=== PATIENT | male | born 1955 | race Caucasian/White ===

== ENCOUNTER 2017-04-19 09:18 | Day surgery (SDC) | payer BC ==
[~2017-04-19 09:18] MED LIST: Cefuroxime 10 MG/ML SYRINGE EYELF SCH; Lidocaine 1% PF 2 ML SDV INJECT SCH; Pilocarpine 4% Ophth Soln 15 ML Bot EYELF SCH
[2017-04-19] MEDS: Polymyxin B/Trimethoprim 10 ML Bottle EYELF SCH ×3 (10:09→12:18)
[2017-04-19] MEDS: Brimonidine 0.2% Ophth Soln 5 ML Bottle EYELF SCH ×3 (10:14→12:18)
[2017-04-19] MEDS: Phenylephrine 2.5% Ophth Soln 2 ML Bot EYELF SCH ×5 (10:19→11:36)
--- NOTE | 2017-04-19 10:22 | PCM.PREANE ---
Preanesthetic Assessment - Anesthesia/Transfusion/Family Hx Anesthesia History: Prior Anesthesia Without Reaction Family History of Anesthesia Reaction: No - Review of Systems General: No Symptoms Pulmonary: Shortness of Breath, Other (smoker, pipe) Cardiovascular: No Symptoms Gastrointestinal: No symptoms Neurological: No Symptoms Other: Reports: None - Physical Assessment NPO Status Date: 04/18/17 NPO Status Time: 21:00 O2 Sat by Pulse Oximetry: 100 Respiratory Rate: 16 Vital Signs: Last Vital Signs Temp 37.1 C 04/19/17 10:00 Pulse 60 04/19/17 10:00 Resp 16 04/19/17 10:00 BP 153/77 H 04/19/17 10:00 Pulse Ox 100 04/19/17 10:00 Height: 1.73 m Weight: 81.647 kg ASA Class: 2 Mental Status: Alert & Oriented x3 Airway Class: Mallampati = 2 Dentition: Reports: Normal Dentition Thyro-Mental Finger Breadths: 3 Mouth Opening Finger Breadths: 3 ROM/Head Extension: Full Lungs: Clear to auscultation, Normal respiratory effort, Decreased breath sounds Cardiovascular: Regular Rate, Regular Rhythm - Allergies Allergies/Adverse Reactions: Allergies Allergy/AdvReac Type Severity Reaction Status Date / Time No Known Allergies Allergy Verified 04/18/17 16:09 - Blood Blood Available: No Product(s) Available: None - Anesthesia Plan Pre-Op Medication Ordered: None - Acknowledgements Anesthesia Type Planned: MAC Pt an Appropriate Candidate for the Planned Anesthesia: Yes Alternatives and Risks of Anesthesia Discussed w Pt/Guardian: Yes Pt/Guardian Understands and Agrees with Anesthesia Plan: Yes PreAnesthesia Questionnaire Cardiovascular History: Reports: Hypertension - Past Surgical History HEENT Surgical History: Reports: Detached Retina, Retinal - SUBSTANCE USE Smoking Status *Q: Current Every Day Smoker Tobacco Use Within Last Twelve Months: Pipe Recreational Drug Use History: No - HOME MEDS Home Medications: Home Meds . [No Known Home Meds] 11/02/15 [History] - CURRENT (IN HOUSE) MEDS Current Meds: Current Medications Brimonidine Tartrate (Alphagan 0.2% Ophth Soln) 0 ml EYELF ASDIRECTED HENRIETTA Stop: 04/19/17 18:00 Last Admin: 04/19/17 10:14 Dose: 1 drop Cefuroxime Sodium (Zinacef) 0 mg EYELF ASDIRECTED HENRIETTA Stop: 04/19/17 18:00 Lidocaine HCl (Xylocaine-Mpf 1%) 10 ml INJECT ASDIRECTED HENRIETTA Stop: 04/19/17 18:00 Phenylephrine HCl (Matty-Synephrine 2.5% Ophth Soln) 0 ml EYELF ASDIRECTED HENRIETTA Stop: 04/19/17 18:00 Pilocarpine HCl (Pilocar 4% Ophth Soln) 0 ml EYELF ASDIRECTED HENRIETTA Stop: 04/19/17 18:00 Polymyxin/Trimethoprim Sulfate (Polytrim Ophth Soln) 0 ml EYELF ASDIRECTED HENRIETTA Stop: 04/19/17 18:00 Last Admin: 04/19/17 10:09 Dose: 1 drop Tetracaine HCl (Tetracaine 0.5% Steri-Unit Nani) 1 ml EYELF ASDIRECTED HENRIETTA Stop: 04/19/17 18:00 Tropicamide (Mydriacyl 1% Ophth Soln) 0 ml EYELF ASDIRECTED HENRIETTA Stop: 04/19/17 18:00
[2017-04-19] MEDS ORDERED: Lidocaine 1% with EPINEPHrine 1:100,000 20 ML MDV ONE (11:28)
[2017-04-19] MEDS: Tetracaine HCl/PF 0.5% 4 ML Bottle EYELF SCH ×2 (11:33→11:45)
[2017-04-19] MEDS ORDERED: Mupirocin Oint 22 GM Tube ONE (11:52)
--- NOTE | 2017-04-19 12:27 | PCM48HPAN ---
Post Anesthesia Note - EVALUATION WITHIN 48HRS OF ANESTHETIC Vital Signs in Normal Range: Yes Patient Participated in Evaluation: Yes Respiratory Function Stable: Yes Airway Patent: Yes Cardiovascular Function Stable: Yes Hydration Status Stable: Yes Pain Control Satisfactory: Yes Nausea and Vomiting Control Satisfactory: Yes Mental Status Recovered: Yes
[2017-04-19 12:34] VITALS: BP 138/92
== END 2017-04-19 12:29 | disposition home or self-care (01) ==
LOC: JD.SDS 09:18
PROVIDERS: ATTEND Ophthalmology
DX: H26.9 Unspecified cataract (principal); Z98.890 Other specified postprocedural states; F17.210 Nicotine dependence, cigarettes, uncomplicated
CPT/HCPCS: 66984; A9270; J0697; C1780

== ENCOUNTER 2017-12-23 21:13 | Emergency (ER) | payer BC ==
[2017-12-23 21:44] VITALS: BP 178/106
--- NOTE | 2017-12-23 21:48 | EDM.PDOC ---
ED HPI GENERAL MEDICAL PROBLEM - General Chief Complaint: Abdominal Pain Stated Complaint: STOMACH PAIN Time Seen by Provider: 12/23/17 21:48 Source of Information: Reports: Patient, Family (spouse) History Limitations: Reports: No Limitations - History of Present Illness INITIAL COMMENTS - FREE TEXT/NARRATIVE: 62-year-old male presents to the ED with epigastric right upper quadrant and left upper quadrant abdominal pain since yesterday. Patient states that he started developing abdominal pain primarily epigastric on intermittent basis about 6 weeks ago. Over that timeframe pain is become more intense and more constant and more frequent. He did state he did see Dr. Mccarthy in clinic last week and was prescribed a Z-Norbert he states he felt somewhat better after the first 2 tablets but after that it didn't seem to make much difference. He does not recognize any will reflux symptoms. He has tried Tums and Rolaids tonight without any effect. He feels associated nausea but he can't vomit. Burping and belching does not seem to relieve the discomfort. He hasn't had a beer for about 6 weeks. He still smokes a pack of cigarettes daily. States he is losing a little bit of weight. He states that even certain foods that his is cooking makes him ill. States normal bowel movement today, normal color without blood. He is aware that his stomach is churning actively all the time or gurgling. Previous abdominal surgery is that of an appendectomy as a teenager. Eyes any genitourinary complaints. Pain does radiate through to his mid back into scapular. He is to the point now that he is afraid to eat as it seems to make the pain worse. He did have some toast at dinnertime today only. He has had a 7-Up also. Only medication he is taking at present as Prilosec 20 mg daily Onset: Gradual (Over the last 6 weeks.) Onset Date: 11/04/17 Duration: Week(s):, Constant (Initially pain was waxing and waning with days free of pain but now it's been more constant. He's been in constant discomfort since yesterday.), Getting Worse, Waxing/Waning Location: Reports: Abdomen (Primarily epigastrium and along the right upper quadrant of the costal margin.), Radiates to (2A through to his mid back intrascapular.) Quality: Reports: Ache, Pressure, Other Severity: Severe (Her pain as 9 out of 10.) Improves with: Reports: None (Tums Rolaids and 7-Up did not help the pain.) Worsens with: Reports: Eating (Eating makes the pain much worse) Context: Denies: Activity, Exercise, Lifting, Sick Contact, Trauma, Other Associated Symptoms: Reports: Cough (Smoker's cough.), Loss of Appetite, Malaise , Nausea/Vomiting, Weakness (Nausea with no vomiting). Denies: No Other Symptoms, Confusion, Chest Pain ( Amoxicillin), cough w sputum, Diaphoresis, Fever/Chills, Headaches, Rash, Seizure, Shortness of Breath, Syncope Treatments STRUCTURAL FITTER: Reports: Other (see below) (None.) Upper Abdomen Pain Score (Numeric/FACES): 8 - Related Data Allergies Allergy/AdvReac Type Severity Reaction Status Date / Time No Known Allergies Allergy Verified 04/18/17 16:09 Home Meds: Home Meds Omeprazole Magnesium [Prilosec Otc] 40 mg PO DAILY 12/23/17 [History] Dicyclomine [Bentyl] 20 mg PO Q6H PRN #10 tablet 12/24/17 [Rx] Hyoscyamine Sulfate [Levsin-Sl] 0.125 mg SL ASDIRECTED #8 tab.subl 12/24/17 [Rx] Past Medical History Cardiovascular History: Reports: Hypertension - Past Surgical History HEENT Surgical History: Reports: Detached Retina, Retinal GI Surgical History: Reports: Appendectomy Social & Family History - Family History Family Medical History: Noncontributory - Tobacco Use Smoking Status *Q: Current Every Day Smoker Tobacco Use Within Last Twelve Months: Cigarettes Years of Tobacco use: 45 Packs/Tins Daily: 1 - Caffeine Use Caffeine Use: Reports: Coffee, Soda - Alcohol Use Alcohol Use History: Yes Alcohol Use in Last Twelve Months: Yes - Recreational Drug Use Recreational Drug Use: No ED ROS GENERAL - Review of Systems Review Of Systems: See Below Constitutional: Reports: Malaise, Weakness, Fatigue, Decreased Appetite, Weight Loss (Not sure how much.). Denies: Fever, Chills HEENT: Reports: No Symptoms Respiratory: Reports: Cough. Denies: Sputum, Hemoptysis (Smoker's cough.) Cardiovascular: Denies: Chest Pain, Blood Pressure Problem, Claudication, Lightheadedness, Orthopnea, Palpitations Endocrine: Reports: Fatigue. Denies: No Symptoms GI/Abdominal: Reports: Abdominal Pain, Decreased Appetite, Distension, Nausea ( Nausea without vomiting). Denies: Constipation, Diarrhea, Difficulty Swallowing , Flatus (Feels bloated.), Hematemesis, Hematochezia, Melena, Stool Incontinence , Vomiting, Other : Reports: No Symptoms Musculoskeletal: Reports: No Symptoms Skin: Reports: No Symptoms Neurological: Reports: No Symptoms Psychiatric: Reports: Anxiety Hematologic/Lymphatic: Reports: No Symptoms Immunologic: Reports: No Symptoms ED EXAM, GI/ABD - Physical Exam Exam: See Below Exam Limited By: No Limitations General Appearance: Alert, Anxious, Moderate Distress (Appears to be in discomfort. Answers all questions quite appropriately makes good eye contact.) Eyes: Bilateral: Normal Appearance (No jaundice.) Throat/Mouth: Other (Tongue is mildly dry. Oropharynx is mildly erythematous from cigarette smoking.) Head: Atraumatic, Normocephalic Neck: Normal Inspection, Supple, Non-Tender, Full Range of Motion. No: Lymphadenopathy (L), Lymphadenopathy (R), Thyromegaly Respiratory/Chest: No Accessory Muscle Use, Respiratory Distress, Wheezing ( Mild tachypnea which a quite to anxiety diffuse wheezing on expiration throughout all lung jones.). No: Lungs Clear, Crackles, Rales, Rhonchi Cardiovascular: Normal Peripheral Pulses, Regular Rate, Rhythm, No Edema, No Gallop GI/Abdominal Exam: No Mass, Pelvis Stable, Tender (Zachary in the epigastrium and along the right costal margin with a positive Soto sign. However appears that his entire liver edge is very tender to touch.), Abnormal Bowel Sounds ( Hyperactive bowel sounds in all 4 quadrants.) Back Exam: Normal Inspection, Full Range of Motion. No: CVA Tenderness (L), CVA Tenderness (R) Extremities: Normal Inspection, Normal Range of Motion, Non-Tender, No Pedal Edema Neurological: Alert, Oriented, CN II-XII Intact, Normal Cognition, Normal Gait Psychiatric: Normal Mood, Anxious (Admits to being mildly anxious.) Skin Exam: Warm, Dry, Intact, Normal Color, No Rash EKG INTERPRETATION EKG Date: 12/23/17 Time: 22:05 Rhythm: NSR Rate (Beats/Min): 62 [place]: Normal P-Wave: Present QRS: Other (Near Q-wave in aVL. Nonspecific) ST-T: Normal QT: Normal EKG Interpretation Comments: Essentially normal ECG Course - Vital Signs Last Recorded V/S: Last Vital Signs Temp 36.5 C 12/23/17 21:42 Pulse 69 12/23/17 21:42 Resp 20 12/23/17 21:42 BP 178/106 H 12/23/17 21:42 Pulse Ox 100 12/23/17 21:42 - Orders/Labs/Meds Orders: Active Orders 24 hr Category Date Time Status EKG Documentation Completion [RC] STAT Care 12/23/17 21:57 Active Abdomen 1V Flat [CR] Stat Exams 12/23/17 21:57 Taken Abdomen Pelvis w Cont [CT] Stat Exams 12/23/17 22:42 Taken Chest 1V Frontal [CR] Stat Exams 12/23/17 21:59 Taken Labs: Laboratory Tests 12/23/17 12/23/17 12/23/17 Range/Units 22:06 22:06 22:06 WBC 11.29 H (4.23-9.07) K/mm3 RBC 4.74 (4.63-6.08) M/mm3 Hgb 14.8 (13.7-17.5) gm/L Hct 42.4 (40.1-51.0) % MCV 89.5 (79.0-92.2) fl MCH 31.2 (25.7-32.2) pg MCHC 34.9 (32.2-35.5) g/dl RDW Std Deviation 42.8 (35.1-43.9) fL Plt Count 141 L (163-337) K/mm3 MPV 10.2 (9.4-12.3) fl Neutrophils % (Manual) 76 H (40-60) % Band Neutrophils % 0 (0-10) % Lymphocytes % (Manual) 21 (20-40) % Atypical Lymphs % 0 % Monocytes % (Manual) 2 (2-10) % Eosinophils % (Manual) 1 (0.8-7.0) % Basophils % (Manual) 0 L (0.2-1.2) Platelet Estimate Adequate Plt Morphology Comment Normal RBC Morph Comment Normal ESR 6 (0-15) mm/hr Sodium 143 (136-145) mEq/L Potassium 3.8 (3.5-5.1) mEq/L Chloride 107 (98-107) mEq/L Carbon Dioxide 22 (21-32) mEq/L Anion Gap 17.8 H (5-15) BUN 16 (7-18) mg/dL Creatinine 1.2 (0.7-1.3) mg/dL Est Cr Clr Drug Dosing 56.12 mL/min Estimated GFR (MDRD) > 60 (>60) mL/min BUN/Creatinine Ratio 13.3 L (14-18) Glucose 101 (80-115) mg/dL Calcium 8.9 (8.5-10.1) mg/dL Total Bilirubin 0.8 (0.2-1.0) mg/dL AST 18 (15-37) U/L ALT 23 (16-63) U/L Alkaline Phosphatase 73 (46-116) U/L Troponin I < 0.017 (0.00-0.056) ng/mL C-Reactive Protein < 0.2 (<1.0) mg/dL Total Protein 6.7 (6.4-8.2) g/dl Albumin 3.9 (3.4-5.0) g/dl Globulin 2.8 gm/dL Albumin/Globulin Ratio 1.4 (1-2) Lipase 120 (73-393) U/L H. pylori IgG Antibody (NEGATIVE) 12/23/17 Range/Units 22:06 WBC (4.23-9.07) K/mm3 RBC (4.63-6.08) M/mm3 Hgb (13.7-17.5) gm/L Hct (40.1-51.0) % MCV (79.0-92.2) fl MCH (25.7-32.2) pg MCHC (32.2-35.5) g/dl RDW Std Deviation (35.1-43.9) fL Plt Count (163-337) K/mm3 MPV (9.4-12.3) fl Neutrophils % (Manual) (40-60) % Band Neutrophils % (0-10) % Lymphocytes % (Manual) (20-40) % Atypical Lymphs % % Monocytes % (Manual) (2-10) % Eosinophils % (Manual) (0.8-7.0) % Basophils % (Manual) (0.2-1.2) Platelet Estimate Plt Morphology Comment RBC Morph Comment ESR (0-15) mm/hr Sodium (136-145) mEq/L Potassium (3.5-5.1) mEq/L Chloride (98-107) mEq/L Carbon Dioxide (21-32) mEq/L Anion Gap (5-15) BUN (7-18) mg/dL Creatinine (0.7-1.3) mg/dL Est Cr Clr Drug Dosing mL/min Estimated GFR (MDRD) (>60) mL/min BUN/Creatinine Ratio (14-18) Glucose (80-115) mg/dL Calcium (8.5-10.1) mg/dL Total Bilirubin (0.2-1.0) mg/dL AST (15-37) U/L ALT (16-63) U/L Alkaline Phosphatase (46-116) U/L Troponin I (0.00-0.056) ng/mL C-Reactive Protein (<1.0) mg/dL Total Protein (6.4-8.2) g/dl Albumin (3.4-5.0) g/dl Globulin gm/dL Albumin/Globulin Ratio (1-2) Lipase (73-393) U/L H. pylori IgG Antibody Negative (NEGATIVE) Meds: Medications Discontinued Medications Generic Name Dose Route Start Last Admin Trade Name Freq PRN Reason Stop Dose Admin Diatrizoate Meglum/Diatrizoate Sod 90 ml 12/23/17 23:04 12/23/17 23:48 Gastrografin 37% PO 12/23/17 23:05 90 ml ONETIME ONE Administration Hydromorphone HCl 1 mg 12/23/17 21:56 12/23/17 22:22 Dilaudid IVPUSH 12/23/17 21:57 Not Given ONETIME ONE Hydromorphone HCl 1 mg 12/23/17 22:09 12/23/17 22:19 Dilaudid IVPUSH 12/23/17 22:10 1 mg ONETIME ONE Administration Hyoscyamine 0.125 mg 12/23/17 21:57 12/23/17 22:20 Hyomax-Sl SL 12/23/17 21:58 0.125 mg ONETIME ONE Administration Dextrose/Sodium Chloride 1,000 mls @ 500 mls/hr 12/23/17 22:00 12/23/17 22:25 Dextrose 5%-Normal Saline IV 500 mls/hr ASDIRECTED HENRIETTA Administration Iopamidol 125 ml 12/23/17 23:04 12/23/17 23:48 Isovue-300 (61%) IVPUSH 12/23/17 23:05 125 ml ONETIME ONE Administration Metoclopramide HCl 7.5 mg 12/23/17 21:56 12/23/17 22:17 Reglan IVPUSH 12/23/17 21:57 7.5 mg ONETIME ONE Administration Sodium Chloride 10 ml 12/23/17 23:05 12/23/17 23:48 Saline Flush FLUSH 10 ml ONETIME PRN Administration Keep Vein Open - Radiology Interpretation Free Text/Narrative:: 62-year-old male presents the ED with diffuse epigastric right upper quadrant and left upper quadrant abdominal pain that radiates through to his mid back. Patient states she's been plagued with this type of pain off and on for the last 6 weeks but it's becoming more severe more intense and lasting longer. Is now afraid to eat. He has associated nausea due to the severity of the pain but he has not vomited. He has been having normal bowel movements. He believes he is losing some weight but is not sure as he doesn't step on a scale. Previous abdominal surgeries that of an appendectomy. He was seen by Dr. [facility]il[facility] last week and identified to have a suspect gastritis. He was placed on a Z-Norbert and is on Prilosec 20 mg a day. He states he is no better over the last week. He has had constant epigastric right upper quadrant abdominal pain for the last 24-30 hours. He has taken Rolaids Tums and 7-Up with no relief. Examination reveals very active bowel sounds in all 4 quadrants. Marked tenderness in the epigastrium and along the right costal margin along the distribution of his liver. He does have a positive Soto sign. Plan IV D5 normal saline at 500 mils per hour. Given Dilaudid 1 mg IV after Levsin 0.125 mg sublingually. Reglan 7.5 mg IV. One view of the chest and one view of the abdomen to be done. Is a [id number] history of cigarette smoking. Routine labs including serum lipase will be ordered. If nothing is found then he will be subjected to CT of the abdomen and pelvis with oral and IV contrast. - Re-Assessments/Exams Free Text/Narrative Re-Assessment/Exam: 12/23/17 22:24 chest x-ray shows mildly hyperinflated lung jones which are clear with no sign of tumor or mass. Cardiac silhouette is normal. KUB reveals no signs of bowel obstruction. There is a bolus of stool in the rectal vault. Air is seen throughout the colon. There are no air-fluid levels. 12/23/17 22:43 pain is still present in the epigastrium nausea improved. I'm going to start him on oral contrast in preparation for CT of the abdomen and pelvis with oral and IV contrast. 12/23/17 23:37 Labs are back. White count is 11.29 with 76% neutrophils and no bands reported. Hemoglobin is 14.8 with hematocrit of 42.4. Sedimentation rate is 6. Sodium 143 with a potassium of 3.8. Chloride 107 with a bicarbonate of 22. Anion gap is elevated at 17.8. BUN is 16. Creatinine is 1.2. GFR is greater than 60. Glucose is 101 calcium 8.9 total bilirubin 0.8. AST is 18 ALT is 23. Alk phosphatase is 73. Troponin I is less then 0.017. C-reactive protein is less than 0.2. Lipase is 120. H. pylori antibody is negative. 12/23/17 23:40 patient is due for CT the abdomen and pelvis with oral and IV contrast in about 10 minutes. He reports he has a sense of fullness from the contrast but his pain overall is markedly improved rates it as a 1 out of 10. 12/24/17 01:08 CT of the abdomen and pelvis has been completed. Visualized portions of the lungs appear normal as does the cardiac silhouette. There is a small hiatal hernia evident. Abdomen shows solid abdominal organs to be unremarkable gallbladder is fluid-filled with no stones evident. There is no biliary ductal dilatation. Multiple sigmoid predominate clonic diverticula are appreciated with no evidence of active diverticulitis. There is a moderate amount of stool throughout the right hemicolon left hemicolon and rectal vault. Oral contrast reaches the mid to distal small bowel the appendix is not identified and no periappendiceal inflammatory changes are evident. No abdominal aortic aneurysm or dissection is evident. Urinary bladder is fluid- filled and unremarkable general of arthritis apparent in the spine. Therefore nothing evident on CT to account for his abdominal pain other than hiatal hernia. Had long discussion with the patient and his about the findings. Interestingly he has been pain-free after receiving IV analgesia in the ED and drinking oral contrast. This suggests this may have reduce the hiatal hernia and thus reducing his pain. Will send him home with 8 tablets of Levsin 0.125 mg strength to be taken sublingually at onset of similar type pain and repeat 5 minutes apart 2 tablets only is taking more than 2 at a time is unlikely to be beneficial. If 2 tablets of Levsin do not relieve his pain he is to take Bentyl 20 mg by mouth and see if this alleviates his pain. Failing this then I believe the patient would benefit from both a HIDA scan to ensure that his gallbladder is indeed functioning normally as no stones are evident and only sludge apparent on ultrasound. And an upper GI endoscopy should be carried out as well. He has plans to follow-up with Dr. Mccarthy in the near future as they are discussing options in regards to his chronic low back pain due to severe degenerative arthritis and degenerative disc disease. Departure - Departure Time of Disposition: 01:25 Disposition: Home, Self-Care 01 Condition: Fair Clinical Impression: Hiatal hernia Abdominal pain Qualifiers: Abdominal location: epigastric Qualified Code(s): R10.13 - Epigastric pain Chronic low back pain Qualifiers: Back pain laterality: bilateral Sciatica presence: unspecified whether sciatica present Qualified Code(s): M54.5 - Low back pain; G89.29 - Other chronic pain; G89.29 - Other chronic pain - Discharge Information Prescriptions: Dicyclomine [Bentyl] 20 mg PO Q6H PRN #10 tablet PRN Reason: Abdominal cramps/diarrhea Hyoscyamine Sulfate [Levsin-Sl] 0.125 mg SL ASDIRECTED #8 tab.subl Instructions: Abdominal Pain, Adult, Hiatal Hernia Referrals: Yevgeniy Mccarthy [Primary Care Provider] - Forms: ED Department Discharge Additional Instructions: Evaluation the emergency room tonight in regards to development of persistent epigastric upper abdominal pain for the better part of 24 hours or more. MR [place] pains off and on for the last 6 weeks. Substantial investigations were carried out during this review in the ED. It revealed a normal chest x-ray with no signs of illness related to cigarette smoking other than emphysematous changes. Abdominal x-rays revealed increased stool in the right hemicolon and the rectum. CT of the abdomen was carried out and reveals a small to moderate sized hiatal hernia which major stomach is herniated slightly upper anterior chest through the opening in the diaphragm where the food pipe traverses. This is likely the cause of the recurrent abdominal pain that you're experiencing. No other abnormalities were identified on CT of the abdomen and/or pelvis. Lab test to prove to be completely normal. In particular a H. pylori organism was not detected and there is no evidence of peptic ulcer on CT exam. Treatment is therefore diet as able. Avoid soda pop due to the carbon dioxide possibly aggravating hiatal hernia. Avoid gas forming foods such as onions, cauliflower , cucumbers, radishes and broccoli. You are treated with intravenous medications for pain relief and nausea. Reglan 7.5 mg and Dilaudid 1 mg for pain relief. This proved to be successful in relieving epigastric pain. Treatment in the future is to use Levsin 1 tablet under the tongue at the onset of similar type pain and repeat in 5 minutes if pain is not completely resolved with the first tablet. Taking more than 2 tablets is unlikely to be useful. 2 tablets to relieve the pain then take Bentyl 20 mg by mouth and this will take about 30-45 minutes to work to try and relieve the hiatal hernia spasm. Suggest follow-up with Dr. Mccarthy within the next 2 weeks to see how you are getting along. Continue Prilosec 20 mg once daily at bedtime to prevent reflux of acid from the stomach up into the lower pole pipe during the night. If you continue to have similar type problems and upper GI endoscopy is indicated. All of your notes will be sent to Dr. Peralta office from [facility]'s visit. - My Orders Last 24 Hours: My Active Orders 12/23/17 21:57 EKG Documentation Completion [RC] STAT Abdomen 1V Flat [CR] Stat 12/23/17 21:59 Chest 1V Frontal [CR] Stat 12/23/17 22:42 Abdomen Pelvis w Cont [CT] Stat - Assessment/Plan Last 24 Hours: My Active Orders 12/23/17 21:57 EKG Documentation Completion [RC] STAT Abdomen 1V Flat [CR] Stat 12/23/17 21:59 Chest 1V Frontal [CR] Stat 12/23/17 22:42 Abdomen Pelvis w Cont [CT] Stat
[2017-12-23] MEDS ORDERED: Metoclopramide 10 MG/2 ML SDV IVPUSH ONE (21:56)
[2017-12-23] MEDS ORDERED: HYDROmorphone 1 MG/ML Syringe IVPUSH ONE (21:56)
[2017-12-23] MEDS ORDERED: Hyoscyamine 0.125 MG Tab.SL SL ONE (21:57)
[2017-12-23] MEDS ORDERED: Dextrose 5%-0.9% NaCl 1,000 ML IV SCH (22:00)
[2017-12-23] MEDS ORDERED: HYDROmorphone 0.5 MG/0.5 ML SYRINGE IVPUSH ONE (22:09)
[2017-12-23] MEDS ORDERED: Iopamidol 612 MG/ML 150 ML Bottle IVPUSH ONE (23:04)
[2017-12-23] MEDS ORDERED: Diatrizoate Meglumine/Diatrizoate Sodium 37% 120 ML Bottle PO ONE (23:04)
[2017-12-23] MEDS ORDERED: Sodium Chloride 0.9% 10 ML Syringe FLUSH PRN (23:05)
--- NOTE | 2017-12-24 14:04 | CR ---
Chest: Frontal view of the chest was obtained. Comparison: Prior chest x-ray of 12/09/17. Heart size and mediastinum are normal. Lungs are clear. Mild scoliosis is noted within the spine. Impression: 1. Incidental findings. Nothing acute is seen on frontal chest x-ray. Diagnostic code #2
--- NOTE | 2017-12-24 14:04 | CR ---
Abdomen: Supine view of the abdomen was obtained. Comparison: Prior abdominal x-ray of 12/09/17. Scoliosis and degenerative change are noted within the spine. Bowel gas pattern appears normal. No abnormal calcifications or discrete soft tissue abnormality is seen. Impression: 1. Incidental findings. Nothing acute is identified on supine abdominal x-ray. Diagnostic code #2
--- NOTE | 2017-12-24 14:04 | CT ---
CT abdomen and pelvis Technique: Multiple axial sections were obtained from above the dome of the diaphragm inferiorly through the pubic symphysis. Intravenous and oral contrast has been given. Delayed images were also obtained through the bladder. Comparison: No prior abdominal or pelvic CT exam. Findings: Visualized lung bases show nothing acute. Liver shows no focal parenchymal abnormality. Contrast reflux is seen into the distal esophagus. Spleen appears within normal limits. Adrenal glands show no nodule. Kidneys show symmetric contrast enhancement without hydronephrosis or mass. Pancreas is normal. Gallbladder contains no calcified gallstones. Aorta shows no aneurysmal dilatation. No retroperitoneal adenopathy is seen. No mesenteric abnormalities are noted. Mild diverticulosis is seen within the sigmoid colon without inflammatory change of diverticulitis. Appendix not visualized. No free fluid or inflammatory change is seen. Delayed images show contrast within the distal ureters and within the bladder. Bone window settings show disc space narrowing and vacuum phenomena within the L2-L3 through L5-S1 discs. Mild scoliosis is also seen. Impression: 1. Incidental findings as noted above. Nothing acute is appreciated on CT study of the abdomen and pelvis. Diagnostic code #2 I agree with preliminary report issued by [facility] ([facility] preliminary report dictated on 12/24/17, 1:30 AM Central Time)
== END 2017-12-24 01:50 | disposition home or self-care (01) ==
LOC: JD.ED 21:13
DX: K44.9 Diaphragmatic hernia without obstruction or gangrene (principal); M54.5 Low back pain; G89.29 Other chronic pain; F17.210 Nicotine dependence, cigarettes, uncomplicated; Z79.899 Other long term (current) drug therapy
CPT/HCPCS: 36415; 71045; 74018; 74177; 80053; 83690; 84484; 85025; 85652; 86140; 86677; 93005; 96361; 96374; 96375; 99285; A9270; J1170; J2765; J7042; J7050; Q9963; Q9967; 93010; 99284-25

== ENCOUNTER 2018-01-25 09:35 | Day surgery (SDC) | payer BC ==
[~2018-01-25 09:35] MED LIST changes: -Cefuroxime 10 MG/ML SYRINGE EYELF SCH; -Lidocaine 1% PF 2 ML SDV INJECT SCH; +Lidocaine 1%/Sod Bicarbonate in NS 8.4% 1 ML Syringe IDERM PRN; +Midazolam 1 MG/ML 2 ML SDV ONE; -Pilocarpine 4% Ophth Soln 15 ML Bot EYELF SCH; +Sodium Chloride 0.9% 10 ML Syringe FLUSH PRN
[2018-01-25] MEDS: Lactated Ringers 1,000 ML IV SCH (10:20)
--- NOTE | 2018-01-25 10:32 | PCM.PREANE ---
Preanesthetic Assessment - Anesthesia/Transfusion/Family Hx Anesthesia History: Prior Anesthesia Without Reaction Family History of Anesthesia Reaction: No Transfusion History: No Prior Transfusion(s) - Review of Systems General: No Symptoms Pulmonary: No Symptoms Cardiovascular: No Symptoms Gastrointestinal: No Symptoms Neurological: No Symptoms, Numbness (left leg) Other: Reports: None - Physical Assessment NPO Status Date: 01/24/18 NPO Status Time: 00:00 Pulse: 74 O2 Sat by Pulse Oximetry: 98 Respiratory Rate: 16 Blood Pressure: 156/94 Temperature: 36.9 C Height: 1.68 m Weight: 75.931 kg ASA Class: 2 Mental Status: Alert & Oriented x3 Airway Class: Mallampati = 1 Dentition: Reports: Normal Dentition, Caries Thyro-Mental Finger Breadths: 3 Mouth Opening Finger Breadths: 3 ROM/Head Extension: Full Lungs: Clear to Auscultation, Decreased Breath Sounds Cardiovascular: Regular Rate, Regular Rhythm - Allergies Allergies/Adverse Reactions: Allergies Allergy/AdvReac Type Severity Reaction Status Date / Time No Known Allergies Allergy Verified 01/24/18 13:34 - Blood Blood Available: No Product(s) Available: None - Anesthesia Plan Pre-Op Medication Ordered: None - Acknowledgements Anesthesia Type Planned: MAC Pt an Appropriate Candidate for the Planned Anesthesia: Yes Alternatives and Risks of Anesthesia Discussed w Pt/Guardian: Yes Pt/Guardian Understands and Agrees with Anesthesia Plan: Yes PreAnesthesia Questionnaire HEENT History: Reports: Cataract Cardiovascular History: Reports: Hypertension Respiratory History: Reports: COPD Gastrointestinal History: Reports: Gastritis Musculoskeletal History: Reports: Arthritis - Past Surgical History GI Surgical History: Reports: Appendectomy - SUBSTANCE USE Smoking Status *Q: Former Smoker Tobacco Use Within Last Twelve Months: Cigarettes, Pipe Second Hand Smoke Exposure: No Days Per Week of Alcohol Use: 0 Number of Drinks Per Day: 0 Total Drinks Per Week: 0 Recreational Drug Use History: No - HOME MEDS Home Medications: Home Meds Omeprazole Magnesium [Prilosec Otc] 40 mg PO DAILY 12/23/17 [History] Dicyclomine [Bentyl] 20 mg PO Q6H PRN #10 tablet 12/24/17 [Rx] - CURRENT (IN HOUSE) MEDS Current Meds: Current Medications Lactated Ringer's (Ringers, Lactated) 1,000 mls @ 125 mls/hr IV ASDIRECTED HENRIETTA Stop: 01/25/18 23:00 Lidocaine/Sodium Bicarbonate (Buffered Lidocaine 1% In Ns 8.4%) 0.25 ml IDERM ONETIME PRN PRN Reason: Prior to IV Start Stop: 01/25/18 18:00 Sodium Chloride (Saline Flush) 10 ml FLUSH ASDIRECTED PRN PRN Reason: Keep Vein Open Stop: 01/25/18 18:00 Discontinued Medications Midazolam HCl (Versed 1 Mg/Ml) Confirm Administered Dose 2 mg .ROUTE .STK-MED ONE Stop: 01/25/18 09:19
[2018-01-25] MEDS ORDERED: fentaNYL 100 MCG/2 ML SDV ONE (10:42)
[2018-01-25] MEDS ORDERED: Propofol 200 MG/20 ML SDV ONE ×2 (10:42→11:00)
--- NOTE | 2018-01-25 11:17 | PCM.OPNOTE ---
- General Post-Op/Procedure Note Date of Surgery/Procedure: 01/25/18 Operative Procedure(s): 1. Esophagogastroduodenoscopy with antral gastric and GE junction biopsies. 2. Screening colonoscopy Findings: There was a small sliding hiatal hernia with endoscopic Van's change characterized by tongue of gastric epithelium migrating cephalad for about 2 cm. There are no nodules or ulcers at the GE junction. The body of the stomach antrum and duodenum were endoscopically normal. Patient had significantly sized internal and external anal tags along with uncomplicated internal hemorrhoids. Pre Op Diagnosis: 1. Dyspepsia. 2. Screening colonoscopy Post-Op Diagnosis: 1. Type I sliding hiatal hernia. 2. Endoscopic Van's change. 3. Perianal tags. 4. Internal hemorrhoids uncomplicated Anesthesia Technique: MAC, Moderate Sedation Primary Surgeon: Nikhil Asher Pathology: Antral gastric and GE junction biopsies EBL in mLs: 0 Complications: None Condition: Good Free Text/Narrative:: After adequate IV sedation and analgesia was obtained with monitoring the patient was placed on his left side. A lubricated upper endoscope was inserted into the esophagus and advanced under direct vision towards the stomach. Additional air was given here. The antrum and pyloric regions were identified and the scope was passed to the second part of the duodenum. The second and first parts were endoscopically normal with no inflammatory changes or mass lesion seen. The antrum and body were unremarkable but given this patient's history I took random biopsy of the antrum and the body of the stomach. In the retroflexed view there was a sliding hiatal hernia. The gastric fundus and cardiac regions were endoscopically normal with no inflammatory changes seen. The scope was then withdrawn to the GE junction where there was a tongue of salmon pink epithelium extending for about 2 cm in a cephalad direction. A biopsy of this area was taken. There was a slight Schatzki's ring. The body of the esophagus was otherwise unremarkable. Perianal inspection and digital rectal examination revealed the external anal tags and internal hemorrhoids. The prostate was slightly enlarged. A lubricated colonoscope was inserted into the rectum then advanced under direct vision to the cecum without difficulty. The bowel preparation was fair. The cecum ascending colon transverse and descending colons were endoscopically normal and had no mass lesions. There were no inflammatory changes seen. The sigmoid was slightly tortuous but was grossly normal. The rectum was remarkable for the retroflexed view which revealed the internal anal tags and mild uncomplicated internal hemorrhoids. Air was removed as I finished the procedure which he tolerated well. Kst Operator photographs taken for the patient and for the medical record.
[2018-01-25 11:23] VITALS: BP 94/51
== END 2018-01-25 12:22 | disposition home or self-care (01) ==
LOC: EDSEX → JD.SDS 09:35 → MERGE 11:00 → JD.SDS 12:22
PROVIDERS: ATTEND Surgery
DX: Z12.11 Encounter for screening for malignant neoplasm of colon (principal); K44.9 Diaphragmatic hernia without obstruction or gangrene; K64.8 Other hemorrhoids; K64.4 Residual hemorrhoidal skin tags; K56.2 Volvulus; J44.9 Chronic obstructive pulmonary disease, unspecified; I10 Essential (primary) hypertension; Z79.899 Other long term (current) drug therapy; F17.210 Nicotine dependence, cigarettes, uncomplicated
CPT/HCPCS: 43239; 45378; J2250; J3010; J7120; 88305; J2704

== ENCOUNTER 2019-10-13 13:06 | Emergency (ER) | payer MEDICARE, BC ==
[2019-10-13 13:26] VITALS: BP 159/82; PULSE 54
[2019-10-13] MEDS ORDERED: HYDROmorphone 1 MG/ML Syringe IVPUSH STA (13:37)
[2019-10-13] MEDS ORDERED: Ondansetron 4 MG/2 ML SDV IVPUSH ONE (13:37)
[2019-10-13] MEDS ORDERED: Sodium Chloride 0.9% 1,000 ML IV SCH (13:45)
[2019-10-13] MEDS ORDERED: Alum Hydrox/Mag Hydrox/Simeth 30 ML, Lidocaine 2% 15 ML PO ONE ×2 (13:58)
[2019-10-13] MEDS ORDERED: Ondansetron 4 MG/2 ML SDV ONE (14:13)
--- NOTE | 2019-10-13 14:20 | EDM.PDOC ---
ED HPI GENERAL MEDICAL PROBLEM - General Chief Complaint: Abdominal Pain Stated Complaint: ABDOMINAL PAIN Time Seen by Provider: 10/13/19 13:30 Source of Information: Reports: Patient, RN Notes Reviewed History Limitations: Reports: No Limitations - History of Present Illness INITIAL COMMENTS - FREE TEXT/NARRATIVE: Patient is a 63-year-old male who presents to the ED for evaluation of abdominal pain. Patient notes that he has been dealing with mid abdominal pain for about a year now, however over the past 2 days the pain has intensified. He notes he is also developed some nausea and vomiting with the increased pain. He is prescribed dicyclomine, this does seem to help the pain also he is on pantoprazole, but he is not sure if this is working any longer either. He notes that he sometimes takes no dicyclomine, and then there is days where he takes 3 tablets. He notes that he did have a bowel movement this morning was normal for him. He denies any sort of urinary pain, fevers or chills, he doesn' t note that food makes this better or worse, nor can he account for any specific foods aggravate this. Patient notes that the pain has been constant for the last few days otherwise prior to this it was intermittent. He notes that he last had EGD and colonoscopy done in roughly December or December of this last year, and everything was within normal limits. His primary care providers Zandra Carrillo. Patient notes he likes to smoke pipe regularly, and drinks a can of beer the evening. He denies any drug use. He states he is nauseated, and was having a little bit of vomiting, but denies any diarrhea. He notes that he has had his appendix taken out many years ago, but still retains his gallbladder. Middle Abdominal Pain Score (Numeric/FACES): 10 - Related Data Allergies Allergy/AdvReac Type Severity Reaction Status Date / Time No Known Allergies Allergy Verified 10/13/19 13:22 Home Meds: Home Meds Dicyclomine [Bentyl] 20 mg PO Q6H PRN #10 tablet 12/24/17 [Rx] Metoprolol Succinate 25 mg PO DAILY 10/13/19 [History] Otc Sleep Aid. 10/13/19 [History] Pantoprazole Sodium 40 mg PO DAILY 10/13/19 [History] Past Medical History HEENT History: Reports: Cataract Cardiovascular History: Reports: Hypertension Respiratory History: Reports: COPD Gastrointestinal History: Reports: Gastritis Musculoskeletal History: Reports: Arthritis - Past Surgical History GI Surgical History: Reports: Appendectomy Social & Family History - Family History Family Medical History: Noncontributory - Caffeine Use Caffeine Use: Reports: Coffee ED ROS GENERAL - Review of Systems Review Of Systems: See Below Constitutional: Denies: Fever, Chills, Weight Loss Respiratory: Denies: Shortness of Breath GI/Abdominal: Reports: Abdominal Pain (epigastrium/LUQ), Nausea, Vomiting. Denies: Constipation, Diarrhea, Decreased Appetite, Hematemesis : Denies: Dysuria, Frequency, Urgency ED EXAM, GI/ABD - Physical Exam Exam: See Below Exam Limited By: No Limitations General Appearance: Alert, WD/WN, No Apparent Distress Eyes: Bilateral: Normal Appearance Throat/Mouth: Normal Inspection, Normal Lips, Normal Teeth, Normal Gums, Normal Oropharynx, Normal Voice, No Airway Compromise Head: Atraumatic, Normocephalic Neck: Normal Inspection Respiratory/Chest: No Respiratory Distress, Lungs Clear, Normal Breath Sounds, No Accessory Muscle Use, Chest Non-Tender Cardiovascular: Normal Peripheral Pulses, Regular Rate, Rhythm, No Murmur GI/Abdominal Exam: Normal Bowel Sounds, Soft, No Distention, No Mass, Guarding ( Epigastrium and over LUQ mainly), Tender (epigastrium and LUQ) Extremities: Normal Inspection, Normal Capillary Refill Neurological: Alert, Oriented, Normal Cognition, No Motor/Sensory Deficits Psychiatric: Normal Affect, Normal Mood Skin Exam: Warm, Dry, Intact, Normal Color, No Rash Course - Vital Signs Last Recorded V/S: Last Vital Signs Temp 97.9 F 10/13/19 13:22 Pulse 54 L 10/13/19 13:22 Resp BP 159/82 H 10/13/19 13:22 Pulse Ox 100 10/13/19 13:22 - Orders/Labs/Meds Orders: Active Orders 24 hr Category Date Time Status Sodium Chloride 0.9% [Normal Saline] 1,000 ml Med 10/13/19 13:45 Ordered IV ASDIRECTED Medication Orders Sodium Chloride (Normal Saline) 1,000 mls @ 999 mls/hr IV ASDIRECTED HENRIETTA Last Admin: 10/13/19 14:15 Dose: 999 mls/hr Labs: Laboratory Tests 10/13/19 10/13/1919 Range/Units 13:50 13:50 15:10 WBC 11.15 H (4.23-9.07) K/mm3 RBC 4.76 (4.63-6.08) M/mm3 Hgb 14.9 (13.7-17.5) gm/dl Hct 43.6 (40.1-51.0) % MCV 91.6 (79.0-92.2) fl MCH 31.3 (25.7-32.2) pg MCHC 34.2 (32.2-35.5) g/dl RDW Std Deviation 43.0 (35.1-43.9) fL Plt Count 149 L (163-337) K/mm3 MPV 9.9 (9.4-12.3) fl Neutrophils % (Manual) 78 H (40-60) % Band Neutrophils % 3 (0-10) % Lymphocytes % (Manual) 12 L (20-40) % Atypical Lymphs % 0 % Monocytes % (Manual) 4 (2-10) % Eosinophils % (Manual) 2 (0.8-7.0) % Basophils % (Manual) 1 (0.2-1.2) Platelet Estimate Adequate RBC Morph Comment Normal Sodium 141 (136-145) mEq/L Potassium 4.4 (3.5-5.1) mEq/L Chloride 108 H (98-107) mEq/L Carbon Dioxide 25 (21-32) mEq/L Anion Gap 12.4 (5-15) BUN 19 H (7-18) mg/dL Creatinine 1.3 (0.7-1.3) mg/dL Est Cr Clr Drug Dosing 51.12 mL/min Estimated GFR (MDRD) 55 (>60) mL/min BUN/Creatinine Ratio 14.6 (14-18) Glucose 95 (80-115) mg/dL Calcium 8.8 (8.5-10.1) mg/dL Total Bilirubin 0.7 (0.2-1.0) mg/dL AST 19 (15-37) U/L ALT 24 (16-63) U/L Alkaline Phosphatase 76 (46-116) U/L Total Protein 6.8 (6.4-8.2) g/dl Albumin 4.0 (3.4-5.0) g/dl Globulin 2.8 gm/dL Albumin/Globulin Ratio 1.4 (1-2) Lipase 94 (73-393) U/L Urine Color Yellow (Yellow) Urine Appearance Clear (Clear) Urine pH 7.5 (5.0-8.0) Ur Specific [place] 1.020 (1.005-1.030) Urine Protein Negative (Negative) Urine Glucose (UA) Negative (Negative) Urine Ketones Negative (Negative) Urine Occult Blood Negative (Negative) Urine Nitrite Negative (Negative) Urine Bilirubin Negative (Negative) Urine Urobilinogen 0.2 (0.2-1.0) Ur Leukocyte Esterase Negative (Negative) Urine RBC Not seen (0-5) /hpf Urine WBC Not seen (0-5) /hpf Ur Squamous Epith Cells Not seen (0-5) /hpf Urine Bacteria Rare (FEW) /hpf Urine Mucus Not seen (FEW) /hpf Meds: Medications Generic Name Dose Route Start Last Admin Trade Name Freq PRN Reason Stop Dose Admin Sodium Chloride 1,000 mls @ 999 mls/hr 10/13/19 13:45 10/13/19 14:15 Normal Saline IV 999 mls/hr ASDIRECTED HENRIETTA Administration Discontinued Medications Generic Name Dose Route Start Last Admin Trade Name Freq PRN Reason Stop Dose Admin Al Hydroxide/Mg Hydroxide 30 0 ml 10/13/19 13:58 10/13/19 14:15 ml/ Lidocaine HCl 15 ml PO 10/13/19 13:59 45 ml ONETIME ONE Administration Hydromorphone HCl 1 mg 10/13/19 13:37 10/13/19 14:16 Dilaudid IVPUSH 10/13/19 13:38 1 mg ONETIME STA Administration Ondansetron HCl 4 mg 10/13/19 13:37 10/13/19 14:15 Zofran IVPUSH 10/13/19 13:38 4 mg ONETIME ONE Administration Ondansetron HCl Confirm 10/13/19 14:13 10/13/19 14:17 Zofran Administered 10/13/19 14:14 Not Given Dose 4 mg .ROUTE .STK-MED ONE - Re-Assessments/Exams Free Text/Narrative Re-Assessment/Exam: 10/13/19 14:21 Patient presents to the ED for evaluation of upper abdominal pain. He does not elicit a chronic alcohol use history however he is quite tender over his epigastrium and left upper quadrant. Did order IV fluids, CBC, CMP, UA, lipase , abdominal pelvis CT with oral and IV contrast, 1 mg IV Dilaudid and 4 mg IV Zofran for management today. 10/13/19 17:[address] is done, and demonstrates diverticulosis with muscular prominence seen within the sigmoid region, but no findings of diverticulitis. Other findings which are believed to be incidental as noted above, no other acute findings. The patient's labs demonstrate a mildly elevated white count of 11,000, with a 75% neutrophil count of 3% bands which would be more suggestive of a possible left shift or bacterial infection. Metabolic panel is okay with the exception of an increased BUN. Urinalysis is negative. At this time as the patient is somewhat symptomatic, and labs are suggestive of an infection, we will treat him for diverticulitis even though the CT shows no inflammatory change. Patient will be directed to follow up in the clinic in roughly 48 hours for re-exam to see if this is getting better. Departure - Departure Time of Disposition: 17:26 Disposition: Home, Self-Care 01 Condition: Fair Clinical Impression: Diverticulosis - Discharge Information *PRESCRIPTION DRUG MONITORING PROGRAM REVIEWED*: No *COPY OF PRESCRIPTION DRUG MONITORING REPORT IN PATIENT EULOGIO: No Referrals: Harmony Carrillo [employer] [Primary Care Provider] - Forms: ED Department Discharge Additional Instructions: You were seen in the ER today for your abdominal pain. You were given some IV fluids, and some nausea medications, your laboratory evaluation demonstrated a mild infection, your CT was suggestive of diverticulosis, which can indicate a possible infection of the lining of your colon. There is no sign of inflammatory change, but due to your symptoms you will be treated with antibiotics, Cipro and Flagyl, please take the Cipro twice a day for 7 days, and the Flagyl will be taken 3 times a day 7 days. Please refrain from alcohol use while taking the Flagyl, as this can cause end crease abdominal cramping, and nausea and vomiting. You may take your already prescribed Bentyl as needed for abdominal cramping, you may take up to 4 times a day if needed. You have been given a handout for dietary recommendations regarding diverticulosis. Please read and try to follow these dietary recommendations see if this doesn't help your symptoms. Recommend that you follow up with your regular care provider, early next week for recheck of your abdomen and make sure that your symptoms are improving. Please return to the ER at any time if your symptoms change or worsen. Sepsis Event Note - Evaluation Sepsis Screening Result: No Definite Risk - Focused Exam Vital Signs: Vital Signs Temp Pulse BP Pulse Ox 10/13/19 13:22 97.9 F 54 L 159/82 H 100 Date Exam was Performed: 10/13/19 Time Exam was Performed: 17:23 - My Orders Last 24 Hours: My Active Orders 10/13/19 13:45 Sodium Chloride 0.9% [Normal Saline] 1,000 ml IV ASDIRECTED - Assessment/Plan Last 24 Hours: My Active Orders 10/13/19 13:45 Sodium Chloride 0.9% [Normal Saline] 1,000 ml IV ASDIRECTED
--- NOTE | 2019-10-13 17:12 | CT ---
CT abdomen and pelvis Technique: Multiple axial sections were obtained from above the dome of the diaphragm inferiorly through the pubic symphysis. Intravenous contrast and oral contrast was given. Comparison: Prior CT abdomen and pelvis exams of 02/16/19 and a 12/23/17. Findings: Visualized lung bases show nothing acute. Liver shows no focal parenchymal abnormality. Spleen appears within normal limits. Adrenal glands show no nodule. No discrete pancreatic finding is seen. Gallbladder contains no calcified gallstones. Kidneys show symmetric contrast enhancement without hydronephrosis or mass. Aorta shows no aneurysm. Atherosclerotic calcification is noted within the aorto and iliac arteries. No aneurysm is seen. No retroperitoneal adenopathy or mesenteric abnormalities are seen. Appendix not definitely visualized. Bowel wall thickening is seen within the sigmoid colon with diverticuli. Findings most likely are due to diverticulosis with muscular prominence. No definite inflammatory change is seen to indicate diverticulitis. No free fluid or inflammatory change is seen. Delayed images shows contrast within the distal ureters and within the bladder. Bone window settings were reviewed which shows disc space narrowing at L2-3, L3-4 and L4-5 as well as L5-S1 with vacuum phenomena. Impression: 1. Diverticulosis with muscular prominence seen within the sigmoid region. No findings of diverticulitis. 2. Other findings which are believed to be incidental as noted above. Nothing acute is seen. Diagnostic code #2 This report was dictated in [place] Standard Time
== END 2019-10-13 18:00 | disposition home or self-care (01) ==
LOC: JD.ED 13:06
DX: K57.30 Diverticulosis of large intestine without perforation or abscess without bleeding (principal); R10.13 Epigastric pain; I10 Essential (primary) hypertension; J44.9 Chronic obstructive pulmonary disease, unspecified; D72.829 Elevated white blood cell count, unspecified; R79.89 Other specified abnormal findings of blood chemistry; Z79.899 Other long term (current) drug therapy
CPT/HCPCS: 36415; 74177; 80053; 81001; 83690; 85007; 85027; 96361; 96374; 96375; 99284; A9270; J1170; J2405; J7030

== ENCOUNTER 2020-03-30 10:34 | Emergency (ER) | payer MEDICARE, BC ==
--- NOTE | 2020-03-30 11:04 | EDM.PDOC ---
ED HPI GENERAL MEDICAL PROBLEM - General Chief Complaint: Cardiovascular Problem Stated Complaint: HIGH BLOOD PRESSURE AND HEADACHE Time Seen by Provider: 03/30/20 11:03 Source of Information: Reports: Patient, RN Notes Reviewed History Limitations: Reports: No Limitations - History of Present Illness INITIAL COMMENTS - FREE TEXT/NARRATIVE: The patient is a 64-year-old male who presents to the ED for the evaluation of his elevated blood pressure readings and headache. Patient notes that he does have hypertension and does take 50 mg of metoprolol daily. His last change in blood pressure medications was about 2 to 3 months ago, his primary care provider is Zandra Carrillo. The patient is also complaining of a generalized headache, and he points at his temples where his headache hurts. He states that the headaches have been getting worse over the last month, and has now developed dizziness and blurred vision over the past few days. Patient's blood pressure readings at home have been systolically in the 170s to 190s at rest. Patient notes that he is taking ibuprofen for the headache, it seems to help right away, but then comes back in 2 to 3 hours. 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 Patient denies any other sick-like symptoms, nausea/vomiting, cough/shortness of breath or chest pain. Bilateral Headache Pain Score (Numeric/FACES): 10 - Related Data Allergies Allergy/AdvReac Type Severity Reaction Status Date / Time No Known Allergies Allergy Verified 03/30/20 10:47 Home Meds: Home Meds Dicyclomine [Bentyl] 20 mg PO Q6H PRN #10 tablet 12/24/17 [Rx] Metoprolol Succinate 50 mg PO DAILY 10/13/19 [History] Pantoprazole Sodium 40 mg PO DAILY 10/13/19 [History] Ibuprofen 600 mg PO Q6H PRN 03/30/20 [History] Peppermint Oil [Ibgard] 700 mg PO BID 03/30/20 [History] Pramipexole [Mirapex] 0.125 mg PO DAILY 03/30/20 [History] Saccharomyces Boulardii [Florastor] 250 mg PO DAILY 03/30/20 [History] diphenhydrAMINE [Benadryl] 25 mg PO BEDTIME PRN 03/30/20 [History] lisinopriL [Lisinopril] 20 mg PO DAILY #30 tablet 03/30/20 [Rx] Past Medical History HEENT History: Reports: Cataract, Hard of Hearing (wears hearing aids) Cardiovascular History: Reports: Hypertension Respiratory History: Reports: COPD Gastrointestinal History: Reports: Gastritis Musculoskeletal History: Reports: Arthritis Neurological History: Reports: Headaches, Chronic - Infectious Disease History Infectious Disease History: Reports: Chicken Pox, Measles, Mumps - Past Surgical History HEENT Surgical History: Reports: Cataract Surgery, Other (See Below) Other HEENT Surgeries/Procedures: R retina sx GI Surgical History: Reports: Appendectomy Social & Family History - Family History Family Medical History: Noncontributory - Tobacco Use Smoking Status *Q: Current Every Day Smoker Tobacco Use Within Last Twelve Months: Cigarettes Years of Tobacco use: 45 Packs/Tins Daily: 5 Smoking Cessation Information Provided To Patient: Patient Refused - Caffeine Use Caffeine Use: Reports: Coffee - Recreational Drug Use Recreational Drug Use: No ED ROS GENERAL - Review of Systems Review Of Systems: See Below Constitutional: Denies: Fever, Chills HEENT: Reports: Vision Change (increasing blurred vision), Other (tinnitus) Respiratory: Denies: Shortness of Breath, Cough Cardiovascular: Reports: Blood Pressure Problem (elevated BP with diagnosis of HTN), Lightheadedness. Denies: Chest Pain, Dyspnea on Exertion, Palpitations GI/Abdominal: Denies: Abdominal Pain, Constipation, Diarrhea, Nausea, Vomiting Neurological: Reports: Dizziness, Headache ED EXAM, GENERAL - Physical Exam Exam: See Below Exam Limited By: No Limitations General Appearance: Alert, WD/WN, No Apparent Distress Eye Exam: Bilateral Eye: EOMI, Normal Inspection, PERRL Ears: Normal External Exam, Normal Canal, Hearing Grossly Normal, Normal TMs, Other (Left TM obscured by cerumen, EAC looks to be WNL) Nose: Normal Inspection Throat/Mouth: Normal Inspection, Normal Lips, Normal Teeth, Normal Gums, Normal Oropharynx, Normal Voice, No Airway Compromise Head: Atraumatic, Normocephalic Neck: Normal Inspection Respiratory/Chest: No Respiratory Distress, Lungs Clear, Normal Breath Sounds, No Accessory Muscle Use, Chest Non-Tender Cardiovascular: Normal Peripheral Pulses, Regular Rate, Rhythm, No Edema, No Murmur Peripheral Pulses: 3+: Radial (L), Radial (R) GI/Abdominal: Normal Bowel Sounds, Soft, Non-Tender, No Distention, No Mass Extremities: Normal Inspection, Normal Capillary Refill Neurological: Alert, Oriented, Normal Cognition, No Motor/Sensory Deficits Psychiatric: Normal Affect, Normal Mood Skin Exam: Warm, Dry, Intact, Normal Color, No Rash Course - Vital Signs Last Recorded V/S: Last Vital Signs Temp 98.7 F 03/30/20 10:43 Pulse 50 L 03/30/20 10:43 Resp 18 03/30/20 10:43 BP 164/86 H 03/30/20 11:23 Pulse Ox 99 03/30/20 10:43 - Orders/Labs/Meds Orders: Active Orders 24 hr Category Date Time Status Peripheral IV Care [RC] . DIRECTED Care 03/30/20 11:13 Active Sodium Chloride 0.9% [Normal Saline] 1,000 ml Med 03/30/20 11:24 Active IV ONETIME Sodium Chloride 0.9% [Saline Flush] Med 03/30/20 11:13 Active 10 ml FLUSH ASDIRECTED PRN Peripheral IV Insertion Adult [OM.PC] Routine Oth 03/30/20 11:13 Ordered Medication Orders Sodium Chloride (Normal Saline) 1,000 mls @ 999 mls/hr IV ONETIME ONE Stop: 03/30/20 12:24 Last Admin: 03/30/20 11:50 Dose: 999 mls/hr Sodium Chloride (Saline Flush) 10 ml FLUSH ASDIRECTED PRN PRN Reason: Keep Vein Open Last Admin: 03/30/20 11:24 Dose: 10 ml Labs: Laboratory Tests 03/30/20 03/30/20 Range/Units 10:50 10:50 WBC 9.35 H (4.23-9.07) K/mm3 RBC 4.81 (4.63-6.08) M/mm3 Hgb 15.3 (13.7-17.5) gm/dl Hct 45.0 (40.1-51.0) % MCV 93.6 H D (79.0-92.2) fl MCH 31.8 (25.7-32.2) pg MCHC 34.0 (32.2-35.5) g/dl RDW Std Deviation 44.0 H (35.1-43.9) fL Plt Count 158 L (163-337) K/mm3 MPV 10.5 (9.4-12.3) fl Neut % (Auto) 76.9 H (34.0-67.9) % Lymph % (Auto) 14.3 L (21.8-53.1) % Sibley % (Auto) 7.6 (5.3-12.2) % Eos % (Auto) 0.6 L (0.8-7.0) Baso % (Auto) 0.4 (0.1-1.2) % Neut # (Auto) 7.18 H (1.78-5.38) K/mm3 Lymph # (Auto) 1.34 (1.32-3.57) K/mm3 Sibley # (Auto) 0.71 (0.30-0.82) K/mm3 Eos # (Auto) 0.06 (0.04-0.54) K/mm3 Baso # (Auto) 0.04 (0.01-0.08) K/mm3 Sodium 143 (136-145) mEq/L Potassium 4.5 (3.5-5.1) mEq/L Chloride 108 H (98-107) mEq/L Carbon Dioxide 28 (21-32) mEq/L Anion Gap 11.5 (5-15) BUN 18 (7-18) mg/dL Creatinine 1.4 H (0.7-1.3) mg/dL Est Cr Clr Drug Dosing 46.84 mL/min Estimated GFR (MDRD) 51 (>60) mL/min BUN/Creatinine Ratio 12.9 L (14-18) Glucose 103 (80-115) mg/dL Calcium 9.1 (8.5-10.1) mg/dL Total Bilirubin 1.1 H (0.2-1.0) mg/dL AST 22 (15-37) U/L ALT 25 (16-63) U/L Alkaline Phosphatase 80 (46-116) U/L Total Protein 6.9 (6.4-8.2) g/dl Albumin 4.2 (3.4-5.0) g/dl Globulin 2.7 gm/dL Albumin/Globulin Ratio 1.6 (1-2) Meds: Medications Generic Name Dose Route Start Last Admin Trade Name Freq PRN Reason Stop Dose Admin Sodium Chloride 1,000 mls @ 999 mls/hr 03/30/20 11:24 03/30/20 11:50 Normal Saline IV 03/30/20 12:24 999 mls/hr ONETIME ONE Administration Sodium Chloride 10 ml 03/30/20 11:13 03/30/20 11:24 Saline Flush FLUSH 10 ml ASDIRECTED PRN Administration Keep Vein Open Discontinued Medications Generic Name Dose Route Start Last Admin Trade Name Oly PRN Reason Stop Dose Admin Diphenhydramine HCl 25 mg 03/30/20 11:13 03/30/20 11:24 Benadryl IVPUSH 03/30/20 11:14 25 mg ONETIME ONE Administration Enalaprilat 1.25 mg 03/30/20 11:14 03/30/20 11:23 Vasotec Iv IVPUSH 03/30/20 11:15 1.25 mg ONETIME ONE Administration Ketorolac Tromethamine 30 mg 03/30/20 11:13 03/30/20 11:23 Toradol IVPUSH 03/30/20 11:14 30 mg ONETIME ONE Administration Metoclopramide HCl 10 mg 03/30/20 11:13 03/30/20 11:23 Reglan IVPUSH 03/30/20 11:14 10 mg ONETIME ONE Administration - Re-Assessments/Exams Free Text/Narrative Re-Assessment/Exam: 03/30/20 11:23 Patient presents to the ED for evaluation of his elevated blood pressures and his headache. We will treat his headache with Toradol, Reglan, Benadryl, and some IV fluids, blood pressure medication was discussed with Dr. Sahu, and he recommends trying 1.25 mg IV Vasotec, and starting the gentleman on lisinopril 20 mg daily, to see if this does not help some of his symptoms after this visit. We will also get baseline labs to check metabolic status. 03/30/20 11:49 Patient's blood work has come back, and is essentially unremarkable. Creatinine is 1.4, GFR is 51, review of his old labs seem to show that this is his normal range. 03/30/20 12:16 The patient was reassessed at bedside, and states he is feeling much better. Will likely discharge him home after the IV fluids have been given time to complete. Departure - Departure Time of Disposition: 12:17 Disposition: Home, Self-Care 01 Condition: Good Clinical Impression: Elevated blood pressure reading with diagnosis of hypertension Headache Qualifiers: Headache type: other vascular headache Qualified Code(s): G44.1 - Vascular headache, not elsewhere classified Prescriptions: lisinopriL [Lisinopril] 20 mg PO DAILY #30 tablet Instructions: General Headache Without Cause, [id number], Managing Your Hypertension Referrals: Harmony Carrillo, WAREHOUSE [employer] FILLER [Primary Care Provider] - Forms: ED Department Discharge Additional Instructions: You were evaluated in the ED for your elevated blood pressure, headache, dizziness, and blurred vision. You were given some IV medications for your headache and to bring down your blood pressure, this seems to help relieve your symptoms pretty good. You have been started on Lisinopril 20 mg daily in combination with the metoprolol you already take. Please continue to take your blood pressure and keep a log of this to share with your primary care provider. Your prescription was electronically sent to [facility] located near [facility], this pharmacy is only open from 12 to 4 PM today, you will need to go there during this timeframe to obtain this medication and take as prescribed. You may start this medication tonight. Highly recommend that you obtain an appointment with Harmony Carrillo for re- examination and a re-check of your labs to make sure that every thing is getting better as expected. This should be in 7-10 days. Please call Tuesday morning to obtain an appointment within this time frame. All other laboratory evaluation at today's visit was within normal limits for your clinical picture. I am hopeful that your headache will subside as we continue to get your blood pressure to a more acceptable level. Please return to the ED if your symptoms' change or worsen. Sepsis Event Note - Evaluation Sepsis Screening Result: No Definite Risk - Focused Exam Vital Signs: Vital Signs Temp Pulse Resp BP BP Pulse Ox 03/30/20 11:23 164/86 H 03/30/20 10:43 98.7 F 50 L 18 171/92 H 99 Date Exam was Performed: 03/30/20 Time Exam was Performed: 12:16 - My Orders Last 24 Hours: My Active Orders 03/30/20 11:13 Peripheral IV Care [RC] . DIRECTED Sodium Chloride 0.9% [Saline Flush] 10 ml FLUSH ASDIRECTED PRN Peripheral IV Insertion Adult [OM.PC] Routine 03/30/20 11:24 Sodium Chloride 0.9% [Normal Saline] 1,000 ml IV ONETIME - Assessment/Plan Last 24 Hours: My Active Orders 03/30/20 11:13 Peripheral IV Care [RC] . DIRECTED Sodium Chloride 0.9% [Saline Flush] 10 ml FLUSH ASDIRECTED PRN Peripheral IV Insertion Adult [OM.PC] Routine 03/30/20 11:24 Sodium Chloride 0.9% [Normal Saline] 1,000 ml IV ONETIME
[2020-03-30] MEDS ORDERED: Ketorolac 30 MG/ML SDV IVPUSH ONE (11:13)
[2020-03-30] MEDS ORDERED: Metoclopramide 10 MG/2 ML SDV IVPUSH ONE (11:13)
[2020-03-30] MEDS ORDERED: Sodium Chloride 0.9% 10 ML Syringe FLUSH PRN (11:13)
[2020-03-30] MEDS ORDERED: diphenhydrAMINE 50 MG/ML SDV IVPUSH ONE (11:13)
[2020-03-30] MEDS ORDERED: Enalaprilat 1.25 MG/ML SDV IVPUSH ONE (11:14)
[2020-03-30] MEDS ORDERED: Sodium Chloride 0.9% 1,000 ML IV ONE (11:24)
[2020-03-30 12:50] VITALS: BP 120/83; PULSE 83
== END 2020-03-30 12:53 | disposition home or self-care (01) ==
LOC: JD.ED 10:34
DX: G44.1 Vascular headache, not elsewhere classified (principal); I10 Essential (primary) hypertension; F17.210 Nicotine dependence, cigarettes, uncomplicated; Z79.899 Other long term (current) drug therapy
CPT/HCPCS: 36415; 80053; 85025; 96361; 96374; 96375; 99284; J1200; J1885; J2765; J7030

== ENCOUNTER 2021-11-16 11:13 | Emergency (ER) | payer MEDICARE, BC ==
[2021-11-16 12:16] VITALS: BP 160/76; PULSE 61
[2021-11-16] MEDS ORDERED: Fluorescein 1 MG Ophth Strip EYERT ONE (12:51)
[2021-11-16] MEDS ORDERED: Erythromycin Base 0.5% Ophth Oint 1 GM Tube EYERT ONE (13:12)
== END 2021-11-16 14:00 | disposition home or self-care (01) ==
LOC: JD.ED 11:13
DX: T15.01XA Foreign body in cornea, right eye, initial encounter (principal); I10 Essential (primary) hypertension; J44.9 Chronic obstructive pulmonary disease, unspecified; Z79.899 Other long term (current) drug therapy
CPT/HCPCS: 65220; 99283; A9270-GY